=== PATIENT | female | born 1985 | race Caucasian/White ===

== ENCOUNTER 2016-09-03 13:07 | Emergency (ER) | payer OTHER ==
[~2016-09-03] VITALS: Ht 160 cm; Wt 54.0 kg
[~2016-09-03 13:07] MED LIST: ACET1TAB40 PO; CYCL-319 PO; IBUP-1542 PO; NORG1TAB55 PO
[2016-09-03 13:16] VITALS: Ht 160 cm; Wt 54.0 kg
[2016-09-03] MEDS ORDERED: DICY10CA60 PO (15:08)
--- NOTE | 2016-09-03 15:45 | ERD ---
ER Documentation Chief Complaint Date/Time DATE: 09/03/16 TIME: 15:37 Chief Complaint abd pain with nausea since 0430 HPI Patient is a 30-year-old female status post appendectomy, who presents to the emergency department with diffuse abdominal pain, nausea, vomiting and diarrhea. Patient states her symptoms started at 4:30 AM this morning. Patient reports vomiting 4 times, nonbloody nonbilious. Patient reports approximately 7-8 episodes of clear brown diarrhea, nonbloody. She describes her pain to be originally starting in the right upper quadrant and now radiating to the left upper quadrant and her left lower quadrant. Patient states the pain is diffuse and episodic in nature. Patient denies any fevers or chills. Patient denies any chest pain, shortness of breath, dysuria, frequency, urgency or hematuria.. No recent travel. No sick contacts. Last menstrual period was on 08-08-16. Of note, patient went to her primary care physician earlier this morning and was given a prescription for Zofran and Imodium. Patient reports taking Zofran with no additional episodes of vomiting after taking this medication. ROS All systems reviewed and are negative except as per history of present illness. Medications Home Meds Active Scripts Dicyclomine Hcl* (Bentyl*) 10 Mg Capsule, 10 MG PO QID, #20 CAP Prov:DEV BARRY PA-C 09/03/16 Cyclobenzaprine Hcl* (Cyclobenzaprine Hcl*) 10 Mg Tablet, 10 MG PO TID, #21 TAB Prov:CHO,CARLOS 10/18/14 Acetaminophen-Codeine* (Acetaminophen-Cod #3*) 300-30 Mg Tab, 1 TAB PO Q4H Y for PAIN LEVEL 6-10, #15 TAB Prov:CHO,CARLOS 10/18/14 Ibuprofen* (Motrin*) 600 Mg Tab, 600 MG PO Q6 for PAIN LEVEL 1-5, #15 TAB Prov:CHO,CARLOS 10/18/14 Reported Medications Norgestimate-Ethinyl Estradiol (Sprintec) 1 Tab Tablet, 1 TAB PO DAILY 10/18/14 Allergies Allergies: Coded Allergies: fentanyl (Verified Allergy, Unknown, 10/18/14) PMhx/Soc Medical and Surgical Hx: pt denies Medical Hx History of Surgery: Yes (appendix) Hx Alcohol Use: No Hx Substance Use: No Hx Tobacco Use: No Smoking Status: Never smoker Physical Exam Vitals Vital Signs Date Time Temp Pulse Resp B/P Pulse Ox O2 Delivery O2 Flow Rate FiO2 09/03/16 13:16 98.1 83 18 103/63 98 Physical Exam GENERAL: Well-developed, well-nourished female. Appears in no acute distress. HEAD: Normocephalic, atraumatic. EYES: Pupils are equally reactive bilaterally. EOMs grossly intact. No conjunctival erythema. No conjunctival pallor ENT: Moist mucous membranes. No uvula deviation. No kissing tonsils. NECK: Supple. No meningismus. Normal range of motion of the neck. LUNG: Clear to auscultation bilaterally. No rhonchi, wheezing, rales or coarse breath sounds. HEART: Regular rate and rhythm. No murmurs, rubs or gallops. ABDOMEN:. Soft and nondistended. Diffuse tenderness in all 4 quadrants. Positive bowel sounds in all four quadrants. No rebound tenderness, no guarding. (-) McBurney's point tenderness. No CVA tenderness. BACK: No midline tenderness. EXTREMITIES: Equal pulses bilaterally. No peripheral clubbing, cyanosis or edema. No unilateral leg swelling. NEUROLOGIC: Alert and oriented. Moving all four extremities without any difficulty. Normal speech. Steady gait. SKIN: Normal color. Warm and dry. No rashes or lesions. Procedures/MDM MEDICAL DECISION MAKING: This is a 30-year-old female past medical history of s/p appendectomy who presents to the emergency department with diffuse abdominal pain, nausea, vomiting and diarrhea. Vital signs were reviewed. Patient was afebrile. Patient was not hypoxic. ENT exam was normal. Lung exam was normal. Abdominal exam revealed diffuse tenderness in all 4 quadrants. Patient did see her primary care physician earlier today and was given a prescription for Zofran. Patient does report taking this medication earlier today without any additional episodes of vomiting. Given these findings, the patient's presentation is most consistent with an acute viral syndrome. I have a much lower clinical concern for infectious diarrhea, traveler's diarrhea, gallbladder disease, bowel perforation, bowel obstruction, strep pharyngitis, acute otitis media, urinary tract infection, bacteremia, sepsis, or meningitis. PRESCRIPTIONS: Cortez Continue take medication as prescribed by her primary care physician. DISCHARGE: At this time, patient is stable for discharge and outpatient management. Patient advised to hydrate well. I have instructed the patient and family to follow-up with his/her primary care physician in 1-2 days. I have instructed the patient to promptly return to the ER at any time for any new or worsening symptoms including increased pain, nausea, vomiting, weakness or fever. The patient and/or family expressed understanding of and agreement with this plan. All questions were answered. Home care instructions were provided. Departure Diagnosis: Primary Impression: Nausea vomiting and diarrhea Additional Impression: Viral syndrome Condition: Stable Patient Instructions: Vomiting And Diarrhea, Nonspecific (Adult) Referrals: [facility] YOU HAVE RECEIVED A MEDICAL SCREENING EXAM AND THE RESULTS INDICATE THAT YOU DO NOT HAVE A CONDITION THAT REQUIRES URGENT TREATMENT IN THE EMERGENCY DEPARTMENT. FURTHER EVALUATION AND TREATMENT OF YOUR CONDITION CAN WAIT UNTIL YOU ARE SEEN IN YOUR DOCTORS OFFICE WITHIN THE NEXT 1-2 DAYS. IT IS YOUR RESPONSIBILITY TO MAKE AN APPOINTMENT FOR FOLOW-UP CARE. IF YOU HAVE A PRIMARY DOCTOR --you should call your primary doctor and schedule an appointment IF YOU DO NOT HAVE A PRIMARY DOCTOR YOU CAN CALL OUR PHYSICIAN REFERRAL HOTLINE AT IF YOU CAN NOT AFFORD TO SEE A PHYSICIAN YOU CAN CHOSE FROM THE FOLLOWING [facility] [address] [facility]. [facility] [address] [facility]. [facility] [address] [facility]. [facility] [address] [facility] [facility] [address] [facility]. [facility]. [address] [facility]. [facility] YOU HAVE RECEIVED A MEDICAL SCREENING EXAM AND THE RESULTS INDICATE THAT YOU DO NOT HAVE A CONDITION THAT REQUIRES URGENT TREATMENT IN THE EMERGENCY DEPARTMENT. FURTHER EVALUATION AND TREATMENT OF YOUR CONDITION CAN WAIT UNTIL YOU ARE SEEN IN YOUR DOCTORS OFFICE WITHIN THE NEXT 1-2 DAYS. IT IS YOUR RESPONSIBILITY TO MAKE AN APPOINTMENT FOR FOLOW-UP CARE. IF YOU HAVE A PRIMARY DOCTOR --you should call your primary doctor and schedule and appointment IF YOU DO NOT HAVE A PRIMARY DOCTOR YOU CAN CALL OUR PHYSICIAN REFERRAL HOTLINE AT . IF YOU CAN NOT AFFORD TO SEE A PHYSICIAN YOU CAN CHOSE FROM THE FOLLOWING [facility] INSTITUTIONS: [facility] [address] [place] [address] [facility] [address] [place] [address] [facility] + [facility] [address] [place] [address] Additional Instructions: Call your primary care doctor TOMORROW for an appointment during the next 1-2 days.See the doctor sooner or return here if your condition worsens before your appointment time. Continue to take Zofran as needed for vomiting. Drink plenty of fluids. BRAT diet advised. DEV BARRY PA-C September 03, 2016 15:45
== END 2016-09-03 16:07 | disposition home or self-care (01) ==
LOC: FTE 13:07
DX: R11.2 Nausea with vomiting, unspecified (principal); R19.7 Diarrhea, unspecified; B34.9 Viral infection, unspecified
CPT/HCPCS: 99283

== ENCOUNTER 2016-09-08 11:22 | Emergency (ER) | payer OTHER ==
[~2016-09-08] VITALS: Ht 157.5 cm; Wt 52.3 kg
[~2016-09-08 11:22] MED LIST changes: +DICY10CA60 PO
[2016-09-08 11:29] VITALS: Ht 157.5 cm; Wt 52.3 kg
[2016-09-08] MEDS ORDERED: SOD CHLORIDE 0.9% 1,000 ML IV STA (11:58)
[2016-09-08] MEDS ORDERED: ONDANSETRON 4 MG INJ IV STA (11:58)
[2016-09-08] MEDS ORDERED: POLYETHYLENE GLYCOL 17 GM PACKET PO ONE (12:00)
[2016-09-08] MEDS: DICYCLOMINE 10 MG CAP PO ONE ×2 (12:12→12:18)
[2016-09-08] MEDS ORDERED: KETOROLAC 30 MG INJ IV STA (12:37)
[2016-09-08 12:40] LABS: ADD SCAN DIFF NO
[2016-09-08 12:43] LABS: BASOPHIL # 0.1 10^3/ul (0.0-0.1); BASOPHILS % 1.1 % (0.0-2.0); EOSINOPHILS # 0.4 10^3/ul (0.0-0.5); EOSINOPHILS % 5.4 % (0.0-7.0); HEMATOCRIT 39.2 % (37.0-47.0); LYMPHOCYTES # 2.1 10^3/ul (0.8-2.9); LYMPHOCYTES % 28.6 % (15.0-51.0); MEAN CORPUSCULAR HEMOGLOBIN 27.8 pg (29.0-33.0); MEAN CORPUSCULAR HGB CONC 33.2 g/dl (32.0-37.0); MEAN CORPUSCULAR VOLUME 83.8 fl (82.0-101.0); MEAN PLATELET VOLUME 10.8 fl (7.4-10.4); MONOCYTE # 0.4 10^3/ul (0.3-0.9); NEUTROPHIL # 4.4 10^3/ul (1.6-7.5); NEUTROPHILS % 59.6 % (39.0-77.0); PLATELET COUNT 229 10^3/UL (140-415); RED BLOOD COUNT 4.68 10^6/ul (4.20-5.40); RED CELL DISTRIBUTION WIDTH 14.2 % (11.5-14.5); WHITE BLOOD COUNT 7.4 10^3/ul (4.8-10.8)
[2016-09-08 13:05] LABS: ALBUMIN 4.9 g/dl (3.3-4.9); ALBUMIN/GLOBULIN RATIO 1.58; BILIRUBIN,INDIRECT 0.4 mg/dl (0-1.1); BILIRUBIN,TOTAL 0.4 mg/dl (0.2-1.3); CALCIUM 9.7 mg/dl (8.4-10.2); CREATININE 0.76 mg/dl (0.44-1.00); POTASSIUM 4.3 mmol/L (3.5-5.1)
[2016-09-08 13:35] LABS: ADD UMIC YES; UR BILIRUBIN (Dip) NEGATIVE (NEGATIVE); UR BLOOD (Dip) 3+ (NEGATIVE); UR CLARITY CLEAR (CLEAR); UR COLOR LT. YELLOW (YELLOW); UR GLUCOSE (Dip) NEGATIVE (NEGATIVE); UR KETONES (Dip) NEGATIVE (NEGATIVE); UR LEUKOCYTE ESTERASE (Dip) NEGATIVE (NEGATIVE); UR NITRITE (Dip) NEGATIVE (NEGATIVE); UR TOTAL PROTEIN (Dip) NEGATIVE (NEGATIVE); UR UROBILINOGEN (Dip) 0.2 E.U./dL (0.1-1.0)
--- NOTE | 2016-09-08 13:38 | RADRPT ---
PROCEDURE: CT Abdomen and Pelvis without contrast. CLINICAL INDICATION: Lower abdominal pain TECHNIQUE: CT of the abdomen and pelvis was performed on a multi-detector scanner without IV contr ast. Coronal and sagittal images were reformatted from the axial data set. One or more of the foll owing dose reduction techniques were used: automated exposure control, adjustment of the mA and/or kV according to patient size, use of iterative reconstruction technique. CTDI = 5.4 mGy. DLP = 277. 57 mGy-cm. COMPARISON: None. FINDINGS: CT abdomen: The lung bases are clear. The heart size is normal, without pericardial effusion. Liver, gallbladd er, biliary tree, pancreas, spleen, adrenal glands and kidneys are unremarkable. No urolithiasis or obstructive uropathy is identified. The stomach is grossly unremarkable. The aorta is of normal caliber. There is no retroperitoneal lymphadenopathy. The padmini hepatis reg ion is clear. CT pelvis: Mild to moderate retained fecal material is suggestive of constipation. There is no bowel obstructi on, free intraperitoneal air or abscess. The patient is status post appendectomy. No diverticulosi s, diverticulitis or colitis is identified. Urinary bladder, uterus and adnexa are grossly unremark able. No pelvic mass, free fluid or lymphadenopathy is identified. The surrounding osseous structures are unremarkable. No osteolytic or osteoblastic lesion is detect ed. IMPRESSION: 1. Mild to moderate retained fecal material is suggestive of constipation. 2. The appendix is surgically absent. 3. No mass, lymphadenopathy, or focal acute inflammatory process is identified. RPTAT: GG .Myles Avila MD, Date Time Electronically viewed and signed by .Myles Avila MD, MD on 09/08/2016 13:38 .R/
[2016-09-08 13:47] LABS: UR SQUAMOUS EPITHELIAL CELL MODERATE; URINE RBCS 0-2 /HPF (0)
[2016-09-08] MEDS ORDERED: METAM PO (13:57)
[2016-09-08] MEDS ORDERED: DOCU100C PO (13:58)
[2016-09-08 14:06] VITALS: BP 128/65; PULSE 74; RESP 18; TEMP 98.2
--- NOTE | 2016-09-08 15:34 | ERD ---
ER Documentation Chief Complaint Date/Time DATE: 09/08/16 TIME: 15:29 Chief Complaint ABDOMINAL PAIN , NAUSEA HPI This is a 30-year-old female presents to the ER with left lower quadrant abdominal pain that is been going on since last Thursday. Patient states that she has not been able have a bowel movement for the last 5 days and she is typically not constipated. Patient has now developed nausea, however denies vomiting and diarrhea. Abdominal pain is crampy and has been constant. Laying on her side makes it better. Patient denies any fevers or chills. She denies any urinary frequency or dysuria. Patient denies any pelvic pain. ROS 12 point review of systems was done, all negative except per HPI. Medications Home Meds Active Scripts Docusate Sodium* (Stool Softener*) 100 Mg Capsule, 100 MG PO BID for 3 Days, CAP Prov:CLAUDIO HINOJOSA 09/08/16 Psyllium* (Metamucil*) 1 Pkt Susp, 1 PKT PO BID for 7 Days, PACKET Prov:CLAUDIO HINOJOSA 09/08/16 Dicyclomine Hcl* (Bentyl*) 10 Mg Capsule, 10 MG PO QID, #20 CAP Prov:DEV BARRYC 09/03/16 Cyclobenzaprine Hcl* (Cyclobenzaprine Hcl*) 10 Mg Tablet, 10 MG PO TID, #21 TAB Prov:CHO,CARLOS 10/18/14 Acetaminophen-Codeine* (Acetaminophen-Cod #3*) 300-30 Mg Tab, 1 TAB PO Q4H Y for PAIN LEVEL 6-10, #15 TAB Prov:CHO,CARLOS 10/18/14 Ibuprofen* (Motrin*) 600 Mg Tab, 600 MG PO Q6 for PAIN LEVEL 1-5, #15 TAB Prov:CHO,CARLOS 10/18/14 Reported Medications Norgestimate-Ethinyl Estradiol (Sprintec) 1 Tab Tablet, 1 TAB PO DAILY 10/18/14 Allergies Allergies: Coded Allergies: fentanyl (Verified Allergy, Unknown, 10/18/14) PMhx/Soc History of Surgery: Yes (appendix) Hx Alcohol Use: Yes Hx Substance Use: No Hx Tobacco Use: No Smoking Status: Never smoker Physical Exam Vitals Vital Signs Date Time Temp Pulse Resp B/P Pulse Ox O2 Delivery O2 Flow Rate FiO2 09/08/16 14:06 98.2 74 18 128/65 99 Room Air 09/08/16 11:29 98.4 120 24 102/69 100 Physical Exam GENERAL: The patient is well developed and appropriate for usual state of health , in no apparent distress. HEENT: Atraumatic. CHEST: Clear to auscultation bilaterally. There are no rales, wheezes or rhonchi. HEART: Regular rate and rhythm. No murmurs, clicks, rubs or gallops. ABDOMEN: Soft, nontender and nondistended. Good bowel sounds. No rebound or guarding. No gross peritonitis. No gross organomegaly or masses. No Osborne sign or McBurney point tenderness. BACK: No midline or flank tenderness. NEURO: Alert and oriented. SKIN: There is no apparent rash or petechia. The skin is warm and dry. Result Diagram: 09/08/16 1210 09/08/16 1210 Results 24 hrs Laboratory Tests Test 09/08/16 12:10 09/08/16 12:46 White Blood Count 7.410^3/ul Red Blood Count 4.6810^6/ul Hemoglobin 13.0g/dl Hematocrit 39.2% Mean Corpuscular Volume 83.8fl Mean Corpuscular Hemoglobin 27.8pg Mean Corpuscular Hemoglobin Concent 33.2g/dl Red Cell Distribution Width 14.2% Platelet Count 41527^3/UL Mean Platelet Volume 10.8fl Neutrophils % 59.6% Lymphocytes % 28.6% Monocytes % 5.0% Eosinophils % 5.4% Basophils % 1.1% Nucleated Red Blood Cells % 0.0/100WBC Neutrophils # 4.410^3/ul Lymphocytes # 2.110^3/ul Monocytes # 0.410^3/ul Eosinophils # 0.410^3/ul Basophils # 0.110^3/ul Nucleated Red Blood Cells # 0.010^3/ul Sodium Level 142mmol/L Potassium Level 4.3mmol/L Chloride Level 107mmol/L Carbon Dioxide Level 23mmol/L Anion Gap 16 Blood Urea Nitrogen 8mg/dl Creatinine 0.76mg/dl Glucose Level 84mg/dl Calcium Level 9.7mg/dl Total Bilirubin 0.4mg/dl Direct Bilirubin 0.00mg/dl Indirect Bilirubin 0.4mg/dl Aspartate Amino Transf (AST/SGOT) 22IU/L Alanine Aminotransferase (ALT/SGPT) 29IU/L Alkaline Phosphatase 33IU/L Total Protein 8.0g/dl Albumin 4.9g/dl Globulin 3.10g/dl Albumin/Globulin Ratio 1.58 Lipase 87U/L Urine Color LT. YELLOW Urine Clarity CLEAR Urine pH 6.5 Urine Specific Marrero <=1.005 Urine Ketones NEGATIVE Urine Nitrite NEGATIVE Urine Bilirubin NEGATIVE Urine Urobilinogen 0.2 E.U./dL Urine Leukocyte Esterase NEGATIVE Urine Microscopic RBC 0-2/HPF Urine Microscopic WBC NONE SEEN/HPF Urine Squamous Epithelial Cells MODERATE Urine Hemoglobin 3+ Urine Glucose NEGATIVE% Urine Total Protein NEGATIVE Current Medications Medications (Trade) Dose Ordered Sig/Claudette Route PRN Reason Start Time Stop Time Status Last Admin Dose Admin Sodium Chloride (NS) 1,000 ml @ 1,000 mls/hr Q1H STAT IV 09/08/16 11:58 09/08/16 12:57 DC 09/08/16 12:11 Ondansetron HCl (Zofran Inj) 4 mg ONCE STAT IV 09/08/16 11:58 09/08/16 12:00 DC 09/08/16 12:11 Polyethylene Glycol (Miralax) 17 gm ONCE ONCE PO 09/08/16 12:00 09/08/16 12:01 DC 09/08/16 12:52 Dicyclomine HCl (Bentyl) 10 mg ONCE ONCE PO 09/08/16 12:00 09/08/16 12:01 DC Ketorolac Tromethamine (Toradol) 30 mg ONCE STAT IV 09/08/16 12:37 09/08/16 12:38 DC 09/08/16 12:52 Procedures/MDM Differential diagnosis includes but is not limited to appendicitis, hernia, UTI , constipation, ectopic , ovarian torsion, PID, Mittelschmerz, diverticulitis, obstruction, intraabdominal abscess. This is a 30-year-old female that presents to the ER for left lower quadrant abdominal pain. Patient does appear to have constipation. Suspicion for obstruction or diverticulitis or intra-abdominal abscess is low at this time. Patient is afebrile and well- appearing. There is no evidence of leukocytosis. Patient will be sent home with Metamucil and docusate. She is to follow-up with her primary care doctor within 1-2 days return to ER sooner if symptoms worsen. My medical decision making was shared with the patient she understands and agrees with plan. Departure Diagnosis: Primary Impression: Constipation Condition: Stable Patient Instructions: Constipation (Adult) Additional Instructions: Call your primary care doctor TOMORROW for an appointment during the next 1-2 days.See the doctor sooner or return here if your condition worsens before your appointment time. CLAUDIO HINOJOSA Sep 08, 2016 15:34
== END 2016-09-08 14:07 | disposition home or self-care (01) ==
LOC: FTE 11:22
DX: K59.00 Constipation, unspecified (principal); R11.0 Nausea
CPT/HCPCS: 74176; 80053; 81001; 83690; 85025; J1885; J2405; J7030; Z7610; 36415; 96374; 96375

== ENCOUNTER 2017-12-30 16:06 | Emergency (ER) | END 2017-12-30 20:18 | disposition home or self-care (01) ==

== ENCOUNTER 2018-02-19 13:02 | Emergency (ER) | END 2018-02-19 14:35 | disposition home or self-care (01) ==